=== PATIENT | male | born 1985 | race Caucasian/White ===

== ENCOUNTER 2017-08-31 11:28 | Emergency (ER) | payer OTHER ==
[2017-08-31] MEDS ORDERED: Acetaminophen 500 MG TAB ONE (11:36)
== END 2017-08-31 12:31 | disposition home or self-care (01) ==
LOC: ERS 11:28
DX: J11.1 Influenza due to unidentified influenza virus with other respiratory manifestations (principal); F17.220 Nicotine dependence, chewing tobacco, uncomplicated
CPT/HCPCS: 87804; 99283